=== PATIENT | female | born 1970 | race Caucasian/White ===

== ENCOUNTER → 2016-10-23 | Outpatient (CLI) | payer OTHER ==
[~2016-10-23] MED LIST: B121000 MCG/1 IM; CYMBALTA30 MG PO; ELAVIL10 MG PO; GLUCOPHAGE500 MG PO; GLUCOSAMINE CHO1 CAP; LEVOXYL0.3 MG PO; LEXAPRO20 MG PO; PERCOCET 325 MG1 TA2 PO; PLAQUENIL200 MG PO; SKELAXIN800 MG PO; SONATA10 MG PO; VICODIN 500 MG-1 TAB PO; VITAMIN D; VITAMIN D50000 I1 PO; VYVANSE50 MG PO; WELLBUTRIN XL300 MG PO; XANAX0.25 MG PO; XOPENEX HF0.045 MG/A IH; ZOVIRAX800 MG PO
== END | disposition home or self-care (01) ==
LOC: RAD 07:40
DX: M17.11 Unilateral primary osteoarthritis, right knee (principal); M25.461 Effusion, right knee

== ENCOUNTER → 2016-10-28 | Outpatient (CLI) | payer OTHER | END | disposition home or self-care (01) | LOC: MRI 10-23 07:28 | DX: S89.91XD Unspecified injury of right lower leg, subsequent encounter (principal); M17.11 Unilateral primary osteoarthritis, right knee; X50.1XXD Overexertion from prolonged static or awkward postures, subsequent encounter ==

== ENCOUNTER → 2016-10-29 | Outpatient (CLI) | payer OTHER | END | disposition home or self-care (01) | LOC: ORTHO 03:01 | DX: M17.12 Unilateral primary osteoarthritis, left knee (principal); M79.89 Other specified soft tissue disorders ==

== ENCOUNTER → 2016-11-03 | Outpatient (CLI) | payer OTHER ==
[~2016-11-03] MED LIST changes: +FLEXAMIN PO; -LEVOXYL0.3 MG PO; +LEVOXYL125 MCG PO; +METANX PO; +VOLTAREN100 GM T
[2016-11-03 11:06] LABS: BASO % 0.3 % (0.0-1.0); BILIRUBIN NEGATIVE (NEGATIVE); BLOOD TRACE-LYSED (NEGATIVE); CLARITY SL CLOUDY (CLEAR); COLOR YELLOW (YELLOW); EOS # 0.2 10*3/uL (0.0-0.4); EOS % 1.8 % (1.0-4.0); GLUCOSE NEGATIVE (NEGATIVE); HEMATOCRIT 42.4 % (37.0-47.0); HEMOGLOBIN 14.1 g/dl (12.0-16.0); KETONE NEGATIVE (NEGATIVE); LEUKO ESTERASE 1+ (NEGATIVE); LYMPH # 2.5 10*3/uL (1.3-4.4); MEAN CELL VOLUME 92.4 fl (81.0-99.0); MEAN CORPUSCULAR HGB 30.7 pg (27.0-31.0); MEAN CORPUSCULAR HGB CONC 33.3 g/dl (33.0-37.0); MONO # 0.6 10*3/uL (0.1-1.0); NEUT # 5.8 10*3/uL (2.3-7.9); NEUT % 63.5 % (47.0-73.0); NITRITE POSITIVE (NEGATIVE); PH 5.5 (5.0-9.0); PLATELET COUNT AUTOMATED 253 10*3/uL (130-400); PROTEIN NEGATIVE (NEGATIVE); RED BLOOD COUNT 4.59 10*6/uL (4.10-5.10); RED CELL DISTRI WIDTH 13.6 % (0-14.5); SPECIFIC GRAVITY >= 1.030 (1.005-1.030); UROBILINOGEN 0.2 E.U./dl (0.2-1.0); WHITE BLOOD COUNT 9.1 10*3/uL (4.8-10.8)
[2016-11-03 11:19] LABS: BACTERIA 3+; EPITHELIAL CELLS 21-30; URINE REFLEX COMMENT YES (NO); WBC 21-30 wbc/hpf (0-5)
[2016-11-03 11:43] LABS: ALBUMIN 3.7 gm/dl (3.1-4.5); ALKALINE PHOSPHATASE 65 U/L (45-117); BILIRUBIN, TOTAL 0.2 mg/dl (0.2-1.0); BUN 13 mg/dl (7-24); CARBON DIOXIDE 26 mmol/L (21-32); CHLORIDE 108 mmol/L (98-107); EST GLOM FILT AFRICAN AMERICAN > 60 ml/min; GLUCOSE 94 mg/dL (65-99); POTASSIUM 3.7 mmol/L (3.5-5.1); SGOT/AST 13 IU/L (3-35); SGPT/ALT 18 U/L (12-78); SODIUM 139 mmol/L (136-145); TOTAL PROTEIN 7.5 gm/dL (6.4-8.2)
== END | disposition home or self-care (01) ==
LOC: LAB 09:04
PROVIDERS: Orthopaedic Surgery
DX: Z01.818 Encounter for other preprocedural examination (principal); S83.241A Other tear of medial meniscus, current injury, right knee, initial encounter; M94.261 Chondromalacia, right knee; R82.99 Other abnormal findings in urine; X58.XXXA Exposure to other specified factors, initial encounter; Y93.89 Activity, other specified; Y92.89 Other specified places as the place of occurrence of the external cause; Y99.8 Other external cause status

== ENCOUNTER → 2016-11-09 | Outpatient (CLI) | payer OTHER ==
[~2016-11-09] MED LIST changes: +Percocet 325 MG1 TAB PO; +ZOFRAN4 MG PO
[2016-11-09 11:55] LABS: BILIRUBIN NEGATIVE (NEGATIVE); BLOOD NEGATIVE (NEGATIVE); CLARITY CLEAR (CLEAR); COLOR YELLOW (YELLOW); GLUCOSE NEGATIVE (NEGATIVE); KETONE NEGATIVE (NEGATIVE); LEUKO ESTERASE NEGATIVE (NEGATIVE); NITRITE NEGATIVE (NEGATIVE); SPECIFIC GRAVITY >= 1.030 (1.005-1.030); UROBILINOGEN 0.2 E.U./dl (0.2-1.0)
[2016-11-09 12:04] LABS: WBC 0-2 wbc/hpf (0-5)
== END | disposition home or self-care (01) ==
LOC: LAB 11:07
PROVIDERS: Orthopaedic Surgery
DX: N39.0 Urinary tract infection, site not specified (principal)

== ENCOUNTER → 2016-11-10 | Day surgery (SDC) | payer OTHER ==
[2016-11-03 09:49] VITALS: BP 159/93
[~2016-11-10] VITALS: Ht 162.5 cm; Wt 106.6 kg
[2016-11-10] VITALS (7 sets, daily range): BP systolic 144–184; BP diastolic 90–119
== END | disposition home or self-care (01) ==
LOC: SDC 11-03 08:45
DX: S83.281A Other tear of lateral meniscus, current injury, right knee, initial encounter (principal); S83.241A Other tear of medial meniscus, current injury, right knee, initial encounter; E03.9 Hypothyroidism, unspecified; E05.00 Thyrotoxicosis with diffuse goiter without thyrotoxic crisis or storm; J45.909 Unspecified asthma, uncomplicated; Z90.49 Acquired absence of other specified parts of digestive tract; Z98.51 Tubal ligation status; Z98.890 Other specified postprocedural states; Z80.8 Family history of malignant neoplasm of other organs or systems; Z80.3 Family history of malignant neoplasm of breast; F17.210 Nicotine dependence, cigarettes, uncomplicated; E66.9 Obesity, unspecified; Z68.41 Body mass index [BMI] 40.0-44.9, adult; M17.12 Unilateral primary osteoarthritis, left knee; X58.XXXA Exposure to other specified factors, initial encounter; Y92.89 Other specified places as the place of occurrence of the external cause; Y99.8 Other external cause status; Y93.89 Activity, other specified

== ENCOUNTER → 2016-11-26 | Outpatient (CLI) | payer OTHER | END | disposition home or self-care (01) | LOC: ORTHO 00:43 | DX: S80.02XA Contusion of left knee, initial encounter (principal); M54.6 Pain in thoracic spine; R23.3 Spontaneous ecchymoses; W19.XXXA Unspecified fall, initial encounter; X58.XXXA Exposure to other specified factors, initial encounter; Y93.89 Activity, other specified; Y92.89 Other specified places as the place of occurrence of the external cause; Y99.8 Other external cause status ==

== ENCOUNTER → 2017-03-01 | Outpatient (CLI) | payer OTHER | LOC: RAD 05:09 | DX: R05 Cough (principal) ==

== ENCOUNTER → 2017-03-19 | Outpatient (CLI) | payer OTHER | END | disposition home or self-care (01) | LOC: US 08:06 | DX: M79.661 Pain in right lower leg (principal); M79.89 Other specified soft tissue disorders; R25.2 Cramp and spasm ==

== ENCOUNTER → 2017-09-10 | Outpatient (CLI) | payer OTHER | END | disposition home or self-care (01) | LOC: MRI 09:44 | DX: M70.61 Trochanteric bursitis, right hip (principal); S83.242A Other tear of medial meniscus, current injury, left knee, initial encounter; M25.862 Other specified joint disorders, left knee; X58.XXXA Exposure to other specified factors, initial encounter; Y93.89 Activity, other specified; Y92.89 Other specified places as the place of occurrence of the external cause; Y99.8 Other external cause status ==

== ENCOUNTER → 2017-09-23 | Outpatient (CLI) | payer OTHER | END | disposition home or self-care (01) | LOC: ORTHO 01:36 | DX: M17.12 Unilateral primary osteoarthritis, left knee (principal) ==

== ENCOUNTER → 2018-01-12 | Outpatient (CLI) | payer OTHER ==
[2018-01-12 12:46] LABS: BASO % 0.4 % (0.0-1.0); EOS # 0.3 10*3/uL (0.0-0.4); EOS % 3.4 % (1.0-4.0); HEMATOCRIT 38.5 % (37.0-47.0); HEMOGLOBIN 12.7 g/dl (12.0-16.0); LYMPH % 25.1 % (27.0-41.0); MEAN CELL VOLUME 91.7 fl (81.0-99.0); MEAN CORPUSCULAR HGB 30.2 pg (27.0-31.0); MEAN PLATELET VOLUME 11.1 fl (9.6-12.3); MONO # 0.7 10*3/uL (0.1-1.0); NEUT # 4.9 10*3/uL (2.3-7.9); NEUT % 61.8 % (47.0-73.0); PLATELET COUNT AUTOMATED 225 10*3/uL (130-400); RED CELL DISTRI WIDTH 13.6 % (0-14.5); WHITE BLOOD COUNT 7.9 10*3/uL (4.8-10.8)
[2018-01-12 13:18] LABS: ALBUMIN 3.4 gm/dl (3.1-4.5); BUN 15 mg/dl (7-24); CHLORIDE 106 mmol/L (98-107); CHOLESTEROL 185 mg/dL (<200); CREATININE 0.74 mg/dL (0.55-1.02); IRON 54 ug/dL (50-170); POTASSIUM 3.7 mmol/L (3.5-5.1); SGOT/AST 13 IU/L (3-35); SGPT/ALT 19 U/L (12-78); SODIUM 139 mmol/L (136-145); THYROXINE (T4) TOTAL 12.6 ug/dl (4.8-13.9); TOTAL IRON BINDING CAPACITY 329 ug/dl (250-450); TRIGLYCERIDES 100 mg/dl (<150); VLDL CHOLESTEROL 20 mg/dL (6-40)
[2018-01-12 13:27] LABS: ALKALINE PHOSPHATASE 61 U/L (45-117); FREE T4 1.33 ng/dl (0.76-1.46); HDL CHOLESTEROL 52 mg/dl (40-60); LDL CHOLESTEROL 113 mg/dL (9-159); T3 UPTAKE 33 % (31-39); THYROID STIM HORMONE (HS) 0.647 uIU/ml (0.358-4.75); TOTAL PROTEIN 6.8 gm/dL (6.4-8.2)
[2018-01-12 14:08] LABS: FERRITIN 11.7 ng/mL (10.0-291.0); PTH INTACT 51.3 pg/mL (18.5-88.0); VITAMIN D, 25-HYDROXY 41.7 ng/mL (30-100)
== END | disposition home or self-care (01) ==
LOC: LAB 11:51
PROVIDERS: Internal Medicine
DX: Z13.1 Encounter for screening for diabetes mellitus (principal); Z13.21 Encounter for screening for nutritional disorder; Z13.220 Encounter for screening for lipoid disorders; E55.9 Vitamin D deficiency, unspecified; D51.0 Vitamin B12 deficiency anemia due to intrinsic factor deficiency; R53.81 Other malaise; R73.01 Impaired fasting glucose; E78.5 Hyperlipidemia, unspecified; E05.00 Thyrotoxicosis with diffuse goiter without thyrotoxic crisis or storm; E03.2 Hypothyroidism due to medicaments and other exogenous substances; E53.9 Vitamin B deficiency, unspecified

== ENCOUNTER → 2018-01-14 | Outpatient (CLI) | payer OTHER | END | disposition home or self-care (01) | LOC: RAD 11:56 | DX: R91.8 Other nonspecific abnormal finding of lung field (principal); R06.02 Shortness of breath; R05 Cough; R07.9 Chest pain, unspecified; I10 Essential (primary) hypertension; Z87.891 Personal history of nicotine dependence ==

== ENCOUNTER 2018-07-20 21:39 | Emergency (ER) | payer OTHER ==
--- NOTE | ~2018-07-20 | EKG ---
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
--- NOTE | ~2018-07-20 | EKG ---
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
[2018-07-20 22:09] LABS: BASO # 0.1 10*3/uL (0.0-0.1); BASO % 0.4 % (0.0-1.0); EOS # 0.1 10*3/uL (0.0-0.4); EOS % 0.8 % (1.0-4.0); HEMATOCRIT 42.4 % (37.0-47.0); HEMOGLOBIN 13.6 g/dl (12.0-16.0); LYMPH # 3.2 10*3/uL (1.3-4.4); LYMPH % 27.1 % (27.0-41.0); MEAN CELL VOLUME 91.8 fl (81.0-99.0); MEAN CORPUSCULAR HGB 29.4 pg (27.0-31.0); MEAN CORPUSCULAR HGB CONC 32.1 g/dl (33.0-37.0); MEAN PLATELET VOLUME 10.8 fl (9.6-12.3); MONO % 8.5 % (3.0-9.0); NEUT # 7.4 10*3/uL (2.3-7.9); NEUT % 62.9 % (47.0-73.0); PLATELET COUNT AUTOMATED 284 10*3/uL (130-400); RED BLOOD COUNT 4.62 10*6/uL (4.10-5.10); RED CELL DISTRI WIDTH 14.8 % (0-14.5); WHITE BLOOD COUNT 11.9 10*3/uL (4.8-10.8)
[2018-07-20 22:25] LABS: ALBUMIN 3.6 gm/dl (3.1-4.5); ALKALINE PHOSPHATASE 68 U/L (45-117); BUN 11 mg/dl (7-24); CHLORIDE 102 mmol/L (98-107); CREATININE 0.95 mg/dL (0.55-1.02); POTASSIUM 3.6 mmol/L (3.5-5.1); SGOT/AST 12 IU/L (3-35); SGPT/ALT 18 U/L (12-78); SODIUM 138 mmol/L (136-145); TOTAL PROTEIN 7.5 gm/dL (6.4-8.2)
[2018-07-20 22:29] LABS: TROPONIN I < 0.015 ng/ml (<0.045)
[2018-07-20 22:42] LABS: ACT PARTIAL THROMBO TIME 29.2 SECONDS (20.0-32.1); INTERNATIONAL NORM RATIO 0.8 (2.0-3.5)
[2018-07-20 23:00] VITALS: BP 118/65
== END 2018-07-21 01:30 | disposition home or self-care (01) ==
LOC: ED 21:39
PROVIDERS: Emergency Medicine Emergency Medical Services
DX: I16.0 Hypertensive urgency (principal); F41.1 Generalized anxiety disorder; R42 Dizziness and giddiness; R00.2 Palpitations; R06.02 Shortness of breath; J45.909 Unspecified asthma, uncomplicated; R51 Headache; H53.8 Other visual disturbances; F17.200 Nicotine dependence, unspecified, uncomplicated; Z79.899 Other long term (current) drug therapy; Z91.040 Latex allergy status; Z88.6 Allergy status to analgesic agent; Z88.8 Allergy status to other drugs, medicaments and biological substances

== ENCOUNTER → 2018-11-21 | Outpatient (CLI) | payer OTHER ==
[2018-11-21 12:35] LABS: BASO % 0.5 % (0.0-1.0); EOS # 0.3 10*3/uL (0.0-0.4); HEMATOCRIT 41.9 % (37.0-47.0); HEMOGLOBIN 13.5 g/dl (12.0-16.0); LYMPH # 2.1 10*3/uL (1.3-4.4); LYMPH % 23.5 % (27.0-41.0); MEAN CELL VOLUME 89.9 fl (81.0-99.0); MEAN CORPUSCULAR HGB CONC 32.2 g/dl (33.0-37.0); MONO # 0.7 10*3/uL (0.1-1.0); MONO % 7.9 % (3.0-9.0); NEUT # 5.7 10*3/uL (2.3-7.9); NEUT % 64.8 % (47.0-73.0); PLATELET COUNT AUTOMATED 245 10*3/uL (130-400); RED BLOOD COUNT 4.66 10*6/uL (4.10-5.10); RED CELL DISTRI WIDTH 13.6 % (0-14.5); WHITE BLOOD COUNT 8.9 10*3/uL (4.8-10.8)
[2018-11-21 13:07] LABS: ALBUMIN 3.3 gm/dl (3.1-4.5); ALKALINE PHOSPHATASE 74 U/L (45-117); BUN 16 mg/dl (7-24); CHLORIDE 106 mmol/L (98-107); CHOLESTEROL 227 mg/dL (<200); CREATININE 0.85 mg/dL (0.55-1.02); HDL CHOLESTEROL 53 mg/dl (40-60); IRON 43 ug/dL (50-170); LDL CHOLESTEROL 133 mg/dL (9-159); POTASSIUM 4.2 mmol/L (3.5-5.1); SGOT/AST 10 IU/L (3-35); SGPT/ALT 19 U/L (12-78); SODIUM 137 mmol/L (136-145); T3 UPTAKE 38 % (31-39); THYROXINE (T4) TOTAL 15.2 ug/dl (4.8-13.9); TOTAL PROTEIN 7.2 gm/dL (6.4-8.2); TRIGLYCERIDES 206 mg/dl (<150); VLDL CHOLESTEROL 41 mg/dL (6-40)
[2018-11-21 13:13] LABS: THYROID STIM HORMONE (HS) 0.085 uIU/ml (0.358-4.75)
[2018-11-21 13:38] LABS: FERRITIN 10.7 ng/mL (10.0-291.0); VITAMIN D, 25-HYDROXY 19.4 ng/mL (30-100)
== END | disposition home or self-care (01) ==
LOC: LAB 10:13 → US 12:30 → CARD 11-24 13:00
PROVIDERS: Internal Medicine
DX: N83.202 Unspecified ovarian cyst, left side (principal); R11.0 Nausea; M25.512 Pain in left shoulder; M25.511 Pain in right shoulder; M17.0 Bilateral primary osteoarthritis of knee; M25.551 Pain in right hip; M25.552 Pain in left hip; Z90.49 Acquired absence of other specified parts of digestive tract

== ENCOUNTER → 2018-11-24 | Outpatient (CLI) | payer OTHER | END | disposition home or self-care (01) | LOC: US 11-21 10:30 → CARD 11-21 10:30 | DX: R06.02 Shortness of breath (principal) ==

== ENCOUNTER → 2019-01-17 | Outpatient (CLI) | payer OTHER | END | disposition home or self-care (01) | LOC: US 15:54 | DX: N81.10 Cystocele, unspecified (principal) ==

== ENCOUNTER 2019-03-10 22:28 | Emergency (ER) | payer OTHER ==
[~2019-03-10] VITALS: Ht 160 cm; Wt 104.3 kg
[2019-03-10 22:31] VITALS: BP 147/93
[2019-03-10] MEDS ORDERED: LISINOPRIL20 MG PO (22:48)
[2019-03-10] MEDS ORDERED: CELEBREX400 M1 PO (22:49)
[2019-03-10] MEDS ORDERED: OMEPRAZOLE40 MG PO (22:50)
[2019-03-10] MEDS ORDERED: TRAMADOL HCL50 MG PO (22:50)
[2019-03-10] MEDS ORDERED: XOPENEX HFA15 GM INH (22:52)
[2019-03-11] MEDS ORDERED: ZANAFLEX2 M1 PO ×2 (03:08→03:23)
[2019-03-11] MEDS ORDERED: MEDROL DOSEPAK4 MG PO (03:08)
[2019-03-11] MEDS ORDERED: PREDNISONE10 M1 PO (03:23)
== END 2019-03-11 03:36 | disposition home or self-care (01) ==
LOC: ED 22:28
DX: M54.41 Lumbago with sciatica, right side (principal); I10 Essential (primary) hypertension; F41.1 Generalized anxiety disorder; R42 Dizziness and giddiness; G89.29 Other chronic pain; F17.200 Nicotine dependence, unspecified, uncomplicated; Z91.040 Latex allergy status; Z88.8 Allergy status to other drugs, medicaments and biological substances; Z79.899 Other long term (current) drug therapy

== ENCOUNTER → 2019-03-29 | Outpatient (CLI) | payer OTHER ==
[~2019-03-29] MED LIST changes: +CELEBREX400 M1 PO; +LISINOPRIL20 MG PO; +MEDROL DOSEPAK4 MG PO; +OMEPRAZOLE40 MG PO; +PREDNISONE10 M1 PO; +TRAMADOL HCL50 MG PO; +XOPENEX HFA15 GM INH; +ZANAFLEX2 M1 PO
== END | disposition home or self-care (01) ==
LOC: MRI 09:00
DX: M54.2 Cervicalgia (principal); M25.569 Pain in unspecified knee

== ENCOUNTER → 2019-04-19 | Outpatient (CLI) | payer OTHER | END | disposition home or self-care (01) | LOC: MRI 03-29 10:00 | DX: M17.11 Unilateral primary osteoarthritis, right knee (principal); M25.461 Effusion, right knee ==

== ENCOUNTER → 2019-08-02 | Outpatient (CLI) | payer MEDICAID ==
[2019-08-02 11:55] LABS: BASO # 0.1 10*3/uL (0.0-0.1); BASO % 0.6 % (0.0-1.0); EOS # 0.1 10*3/uL (0.0-0.4); EOS % 0.9 % (1.0-4.0); HEMATOCRIT 44.4 % (37.0-47.0); LYMPH # 2.8 10*3/uL (1.3-4.4); MEAN CELL VOLUME 91.5 fl (81.0-99.0); MEAN CORPUSCULAR HGB 29.5 pg (27.0-31.0); MEAN CORPUSCULAR HGB CONC 32.2 g/dl (33.0-37.0); MEAN PLATELET VOLUME 10.7 fl (9.6-12.3); MONO # 0.9 10*3/uL (0.1-1.0); MONO % 8.6 % (3.0-9.0); NEUT # 6.7 10*3/uL (2.3-7.9); NEUT % 63.5 % (47.0-73.0); PLATELET COUNT AUTOMATED 341 10*3/uL (130-400); RED BLOOD COUNT 4.85 10*6/uL (4.10-5.10); RED CELL DISTRI WIDTH 13.6 % (0-14.5); WHITE BLOOD COUNT 10.6 10*3/uL (4.8-10.8)
[2019-08-02 12:33] LABS: ALBUMIN 3.7 gm/dl (3.1-4.5); ALKALINE PHOSPHATASE 87 U/L (45-117); BUN 23 mg/dl (7-24); CHLORIDE 105 mmol/L (98-107); CHOLESTEROL 254 mg/dL (<200); CREATININE 1.07 mg/dL (0.55-1.02); HDL CHOLESTEROL 72 mg/dl (40-60); IRON 78 ug/dL (50-170); LDL CHOLESTEROL 154 mg/dL (9-159); POTASSIUM 3.9 mmol/L (3.5-5.1); SGOT/AST 15 IU/L (3-35); SGPT/ALT 35 U/L (12-78); SODIUM 136 mmol/L (136-145); TOTAL IRON BINDING CAPACITY 415 ug/dl (250-450); TOTAL PROTEIN 7.7 gm/dL (6.4-8.2); TRIGLYCERIDES 139 mg/dl (<150); VLDL CHOLESTEROL 28 mg/dL (6-40)
[2019-08-02 12:40] LABS: T3 UPTAKE 37 % (31-39); THYROID STIM HORMONE (HS) 0.558 uIU/ml (0.358-4.75)
[2019-08-02 12:41] LABS: FERRITIN 15.7 ng/mL (10.0-291.0); PTH INTACT 47.2 pg/mL (18.5-88.0)
[2019-08-03 08:07] LABS: COMPLEMENT C4 28 mg/dL (14-44); RHEUMATOID ARTHRITIS FACTOR <10.0 IU/mL (0.0-13.9)
[2019-08-03 09:09] LABS: FOLLICLE STIMULATING HORMONE 39.7 mIU/mL (.); LUTEINIZING HORMONE 26.2 mIU/mL (.); PROLACTIN 37.1 ng/mL (4.8-23.3); TOTAL T3 (TT3) 70 ng/dL (71-180)
[2019-08-03 12:08] LABS: ANTI-DSDNA ANTIBODIES 1 IU/mL (0-9)
[2019-08-07 08:05] LABS: FREE T4 BY DIALYSIS 2.7 ng/dL (.)
== END | disposition home or self-care (01) ==
LOC: LAB 10:42
PROVIDERS: Internal Medicine Endocrinology, Diabetes & Metabolism
DX: E03.2 Hypothyroidism due to medicaments and other exogenous substances (principal); R73.01 Impaired fasting glucose; E55.9 Vitamin D deficiency, unspecified; D53.8 Other specified nutritional anemias; D50.9 Iron deficiency anemia, unspecified; E23.0 Hypopituitarism; R94.7 Abnormal results of other endocrine function studies

== ENCOUNTER → 2019-10-16 | Outpatient (CLI) | payer OTHER | END | disposition home or self-care (01) | LOC: LAB 14:15 | DX: N39.0 Urinary tract infection, site not specified (principal) ==

== ENCOUNTER → 2019-12-07 | Outpatient (CLI) | payer OTHER ==
[2019-12-07 09:39] LABS: BASO % 0.4 % (0.0-1.0); EOS # 0.3 10*3/uL (0.0-0.4); EOS % 2.5 % (1.0-4.0); HEMATOCRIT 35.4 % (37.0-47.0); LYMPH # 3.1 10*3/uL (1.3-4.4); LYMPH % 30.3 % (27.0-41.0); MEAN CELL VOLUME 89.6 fl (81.0-99.0); MEAN CORPUSCULAR HGB 27.6 pg (27.0-31.0); MEAN CORPUSCULAR HGB CONC 30.8 g/dl (33.0-37.0); MEAN PLATELET VOLUME 10.3 fl (9.6-12.3); MONO # 0.9 10*3/uL (0.1-1.0); MONO % 8.4 % (3.0-9.0); NEUT # 5.9 10*3/uL (2.3-7.9); NEUT % 58.1 % (47.0-73.0); PLATELET COUNT AUTOMATED 342 10*3/uL (130-400); RED BLOOD COUNT 3.95 10*6/uL (4.10-5.10); RED CELL DISTRI WIDTH 13.9 % (0-14.5); WHITE BLOOD COUNT 10.1 10*3/uL (4.8-10.8)
[2019-12-07 10:02] LABS: ALBUMIN 3.1 gm/dl (3.1-4.5); ALKALINE PHOSPHATASE 86 U/L (45-117); BUN 22 mg/dl (7-24); CHLORIDE 106 mmol/L (98-107); CREATININE 0.87 mg/dL (0.55-1.02); POTASSIUM 3.7 mmol/L (3.5-5.1); SGOT/AST 13 IU/L (3-35); SGPT/ALT 31 U/L (12-78); SODIUM 138 mmol/L (136-145); TOTAL PROTEIN 6.9 gm/dL (6.4-8.2)
[2019-12-07 10:14] LABS: THYROXINE (T4) TOTAL 13.6 ug/dl (4.8-13.9)
[2019-12-07 10:24] LABS: PTH INTACT 36.2 pg/mL (18.5-88.0)
[2019-12-07 11:09] LABS: CLARITY TURBID (CLEAR); COLOR Yellow (YELLOW)
[2019-12-07 11:10] LABS: BACTERIA 4+; BILIRUBIN NEGATIVE; BLOOD 2+ (NEGATIVE); EPITHELIAL CELLS 21-30; GLUCOSE NEGATIVE; KETONE TRACE; LEUKO ESTERASE 2+ (NEGATIVE); NITRITE POSITIVE (NEGATIVE); RBC 21-30 rbc/hpf (0-2); SPECIFIC GRAVITY > 1.030 (1.001-1.030); WBC TNTC wbc/hpf (0-5)
[2019-12-08 08:12] LABS: COMPLEMENT C4 28 mg/dL (14-44); PROLACTIN 69.8 ng/mL (4.8-23.3)
[2019-12-08 09:07] LABS: FOLLICLE STIMULATING HORMONE 7.8 mIU/mL (.); LUTEINIZING HORMONE 7.7 mIU/mL (.)
[2019-12-14 09:09] LABS: T4 ANTIBODY Negative (Negative)
== END | disposition home or self-care (01) ==
LOC: LAB 08:13
PROVIDERS: Internal Medicine Endocrinology, Diabetes & Metabolism; ATTEND Physical Therapist Orthopedic
DX: M25.741 Osteophyte, right hand (principal); M25.742 Osteophyte, left hand; M19.90 Unspecified osteoarthritis, unspecified site; R76.8 Other specified abnormal immunological findings in serum; E03.2 Hypothyroidism due to medicaments and other exogenous substances; E78.5 Hyperlipidemia, unspecified; E55.9 Vitamin D deficiency, unspecified; E23.0 Hypopituitarism; D50.9 Iron deficiency anemia, unspecified; R73.01 Impaired fasting glucose

== ENCOUNTER → 2019-12-29 | Outpatient (CLI) | payer OTHER | END | disposition home or self-care (01) | LOC: CT 14:27 | PROVIDERS: ATTEND Specialist | DX: M51.17 Intervertebral disc disorders with radiculopathy, lumbosacral region (principal); Z94.89 Other transplanted organ and tissue status ==

== ENCOUNTER 2020-01-30 15:24 | Emergency (ER) | payer OTHER ==
[~2020-01-30] VITALS: Wt 111.1 kg
[2020-01-30 15:34] VITALS: BP 142/80
[2020-01-30 16:24] LABS: BASO % 0.2 % (0.0-1.0); EOS # 0.1 10*3/uL (0.0-0.4); EOS % 0.5 % (1.0-4.0); HEMATOCRIT 37.1 % (37.0-47.0); LYMPH # 1.4 10*3/uL (1.3-4.4); LYMPH % 13.7 % (27.0-41.0); MEAN CELL VOLUME 84.7 fl (81.0-99.0); MEAN CORPUSCULAR HGB 25.3 pg (27.0-31.0); MEAN CORPUSCULAR HGB CONC 29.9 g/dl (33.0-37.0); MEAN PLATELET VOLUME 9.5 fl (9.6-12.3); MONO # 0.5 10*3/uL (0.1-1.0); MONO % 5.1 % (3.0-9.0); NEUT # 8.1 10*3/uL (2.3-7.9); NEUT % 80.3 % (47.0-73.0); PLATELET COUNT AUTOMATED 358 10*3/uL (130-400); RED BLOOD COUNT 4.38 10*6/uL (4.10-5.10); RED CELL DISTRI WIDTH 14.4 % (0-14.5); WHITE BLOOD COUNT 10.1 10*3/uL (4.8-10.8)
[2020-01-30 16:41] LABS: ALBUMIN 3.4 gm/dl (3.1-4.5); ALKALINE PHOSPHATASE 88 U/L (45-117); BUN 20 mg/dl (7-24); CHLORIDE 102 mmol/L (98-107); CREATININE 1.02 mg/dL (0.55-1.02); POTASSIUM 3.8 mmol/L (3.5-5.1); SGOT/AST 18 IU/L (3-35); SGPT/ALT 30 U/L (12-78); SODIUM 136 mmol/L (136-145); TOTAL PROTEIN 7.6 gm/dL (6.4-8.2)
[2020-01-30 16:55] LABS: TROPONIN I < 0.015 ng/ml (<0.045)
== END 2020-01-30 18:38 | disposition home or self-care (01) ==
LOC: ED 15:24
PROVIDERS: Emergency Medicine
DX: R06.00 Dyspnea, unspecified (principal); M54.9 Dorsalgia, unspecified; F32.9 Major depressive disorder, single episode, unspecified; F41.9 Anxiety disorder, unspecified; J45.909 Unspecified asthma, uncomplicated; Z91.040 Latex allergy status; Z88.8 Allergy status to other drugs, medicaments and biological substances; Z79.899 Other long term (current) drug therapy; Z79.2 Long term (current) use of antibiotics

== ENCOUNTER → 2020-02-23 | Outpatient (CLI) | payer OTHER | END | disposition home or self-care (01) | LOC: CT 13:00 | PROVIDERS: ATTEND Internal Medicine | DX: M54.5 Low back pain (principal) ==

== ENCOUNTER → 2020-02-27 | Outpatient (CLI) | payer OTHER | END | disposition home or self-care (01) | LOC: CARD 00:18 | PROVIDERS: ATTEND Internal Medicine | DX: R06.02 Shortness of breath (principal); R00.2 Palpitations ==

== ENCOUNTER → 2020-03-28 | Outpatient (CLI) | payer OTHER ==
[~2020-03-28] MED LIST changes: +ARTHROTEC 75 M1 EACH PO; +GABAPENTIN800 MG PO; +HYDROCORTISONE10 MG PO; +LEVOXYL112 MCG PO; -LEVOXYL125 MCG PO; +METFORMIN HCL500 M2 PO; +ROBAXIN-750750 MG PO; +VISTARIL25 M2 PO
[2020-03-28 13:12] LABS: BASO % 0.4 % (0.0-1.0); EOS # 0.1 10*3/uL (0.0-0.4); EOS % 0.9 % (1.0-4.0); HEMATOCRIT 34.4 % (37.0-47.0); LYMPH # 1.9 10*3/uL (1.3-4.4); MEAN CELL VOLUME 81.3 fl (81.0-99.0); MEAN CORPUSCULAR HGB 24.3 pg (27.0-31.0); MEAN CORPUSCULAR HGB CONC 29.9 g/dl (33.0-37.0); MEAN PLATELET VOLUME 10.4 fl (9.6-12.3); MONO # 0.6 10*3/uL (0.1-1.0); MONO % 8.3 % (3.0-9.0); NEUT # 4.7 10*3/uL (2.3-7.9); NEUT % 64.3 % (47.0-73.0); PLATELET COUNT AUTOMATED 310 10*3/uL (130-400); RED BLOOD COUNT 4.23 10*6/uL (4.10-5.10); RED CELL DISTRI WIDTH 15.2 % (0-14.5); WHITE BLOOD COUNT 7.4 10*3/uL (4.8-10.8)
[2020-03-28 13:32] LABS: ALBUMIN 3.2 gm/dl (3.1-4.5); ALKALINE PHOSPHATASE 73 U/L (45-117); BUN 11 mg/dl (7-24); CHLORIDE 107 mmol/L (98-107); CHOLESTEROL 218 mg/dL (<200); CREATININE 0.81 mg/dL (0.55-1.02); HDL CHOLESTEROL 66 mg/dl (40-60); IRON 34 ug/dL (50-170); LDL CHOLESTEROL 113 mg/dL (9-159); POTASSIUM 3.8 mmol/L (3.5-5.1); SGOT/AST 13 IU/L (3-35); SGPT/ALT 19 U/L (12-78); SODIUM 138 mmol/L (136-145); T3 UPTAKE 40 % (31-39); THYROXINE (T4) TOTAL 14.9 ug/dl (4.8-13.9); TOTAL IRON BINDING CAPACITY 411 ug/dl (250-450); TRIGLYCERIDES 197 mg/dl (<150); VLDL CHOLESTEROL 39 mg/dL (6-40)
[2020-03-28 13:38] LABS: THYROID STIM HORMONE (HS) 0.012 uIU/ml (0.358-4.75)
[2020-03-28 14:13] LABS: FERRITIN 5.7 ng/mL (10.0-291.0); PTH INTACT 58.3 pg/mL (18.5-88.0); VITAMIN D, 25-HYDROXY 51.5 ng/mL (30-100)
[2020-04-03 19:06] LABS: METANEPHRINE, PLASMA <10.0 pg/mL (0.0-88.0)
[2020-04-04 04:08] LABS: VMA, URINE 24 HR 3.7 mg/24 hr (0.0-7.5)
[2020-04-04 07:21] LABS: NORMETANEPHRINE, PLASMA 63.6 pg/mL (0.0-125.8)
[2020-04-05 17:06] LABS: NORMETANEPHRINE URINE 128 ug/L (Undefined); URINE METANEPHRINE 26 ug/L (Undefined); URINE METANEPHRINE, 24 HR 81 ug/24 hr (36-209); URINE NORMETANEPHRINE 24HR 397 ug/24 hr (131-612)
[2020-04-05 20:07] LABS: FREE T4 BY DIALYSIS 2.5 ng/dL (.)
[2020-04-06 04:10] LABS: DOPAMINE, URINE 121 ug/L (Undefined); EPINEPHRINE, URINE 24 HR 3 ug/24 hr (0-20)
== END | disposition home or self-care (01) ==
LOC: LAB 12:13
PROVIDERS: ATTEND Internal Medicine Endocrinology, Diabetes & Metabolism
DX: E55.9 Vitamin D deficiency, unspecified (principal); E27.9 Disorder of adrenal gland, unspecified; E53.8 Deficiency of other specified B group vitamins; R73.01 Impaired fasting glucose; D50.9 Iron deficiency anemia, unspecified; E03.2 Hypothyroidism due to medicaments and other exogenous substances

== ENCOUNTER → 2020-04-01 | Outpatient (CLI) | payer OTHER | END | disposition home or self-care (01) | LOC: RAD 03-18 14:00 | PROVIDERS: ATTEND Internal Medicine Endocrinology, Diabetes & Metabolism | DX: M81.0 Age-related osteoporosis without current pathological fracture (principal) ==

== ENCOUNTER → 2020-04-16 | Outpatient (CLI) | payer OTHER | END | disposition home or self-care (01) | LOC: LAB 08:55 | PROVIDERS: ATTEND Internal Medicine Endocrinology, Diabetes & Metabolism | DX: E03.2 Hypothyroidism due to medicaments and other exogenous substances (principal); E55.9 Vitamin D deficiency, unspecified; E23.0 Hypopituitarism; R73.01 Impaired fasting glucose; E78.5 Hyperlipidemia, unspecified; E53.8 Deficiency of other specified B group vitamins ==

== ENCOUNTER → 2020-04-30 | Outpatient (CLI) | payer OTHER | END | disposition home or self-care (01) | LOC: LAB 11:01 | PROVIDERS: ATTEND Internal Medicine | DX: N39.0 Urinary tract infection, site not specified (principal) ==

== ENCOUNTER 2020-05-30 15:57 | Emergency (ER) | payer OTHER ==
[~2020-05-30] VITALS: Ht 157.4 cm; Wt 109.8 kg
[2020-05-30 20:38] VITALS: BP 147/69
== END 2020-05-30 21:16 | disposition home or self-care (01) ==
LOC: ED 15:57
DX: M54.12 Radiculopathy, cervical region (principal); M62.830 Muscle spasm of back; Z91.040 Latex allergy status; Z88.8 Allergy status to other drugs, medicaments and biological substances; Z79.899 Other long term (current) drug therapy; Z79.84 Long term (current) use of oral hypoglycemic drugs; Z79.2 Long term (current) use of antibiotics; Z98.890 Other specified postprocedural states

== ENCOUNTER → 2020-06-25 | Outpatient (CLI) | payer OTHER ==
[2020-06-25 12:43] LABS: THYROID STIM HORMONE (HS) 0.043 uIU/ml (0.358-4.75); THYROXINE (T4) TOTAL 15.4 ug/dl (4.8-13.9)
== END | disposition home or self-care (01) ==
LOC: LAB 11:35
PROVIDERS: ATTEND Internal Medicine Endocrinology, Diabetes & Metabolism
DX: E03.2 Hypothyroidism due to medicaments and other exogenous substances (principal); E27.9 Disorder of adrenal gland, unspecified

== ENCOUNTER → 2020-08-15 | Outpatient (CLI) | payer OTHER | END | disposition home or self-care (01) | LOC: CARD 00:46 | PROVIDERS: ATTEND Internal Medicine | DX: N39.0 Urinary tract infection, site not specified (principal); R06.02 Shortness of breath ==

== ENCOUNTER → 2020-09-09 | Outpatient (CLI) | payer OTHER | END | disposition home or self-care (01) | LOC: MAMMO 11:00 | PROVIDERS: ATTEND Internal Medicine | DX: Z12.31 Encounter for screening mammogram for malignant neoplasm of breast (principal); N64.89 Other specified disorders of breast ==

== ENCOUNTER → 2020-09-26 | Outpatient (CLI) | payer OTHER ==
[~2020-09-26] MED LIST changes: +CLINDAMYCIN HC300 MG PO
[2020-09-26 09:09] LABS: BASO % 0.5 % (0.0-1.0); EOS # 0.3 10*3/uL (0.0-0.4); EOS % 4.1 % (1.0-4.0); HEMATOCRIT 39.6 % (37.0-47.0); LYMPH # 2.1 10*3/uL (1.3-4.4); MEAN CORPUSCULAR HGB CONC 32.6 g/dl (33.0-37.0); MEAN PLATELET VOLUME 10.2 fl (9.6-12.3); MONO # 0.7 10*3/uL (0.1-1.0); MONO % 10.8 % (3.0-9.0); NEUT # 3.3 10*3/uL (2.3-7.9); NEUT % 51.4 % (47.0-73.0); PLATELET COUNT AUTOMATED 238 10*3/uL (130-400); RED BLOOD COUNT 4.45 10*6/uL (4.10-5.10); RED CELL DISTRI WIDTH 13.8 % (0-14.5); WHITE BLOOD COUNT 6.3 10*3/uL (4.8-10.8)
[2020-09-26 09:27] LABS: ALBUMIN 3.2 gm/dl (3.1-4.5); ALKALINE PHOSPHATASE 83 U/L (45-117); BUN 18 mg/dl (7-24); CHLORIDE 109 mmol/L (98-107); CHOLESTEROL 215 mg/dL (<200); CREATININE 0.86 mg/dL (0.55-1.02); LDL CHOLESTEROL 130 mg/dL (9-159); POTASSIUM 3.8 mmol/L (3.5-5.1); SGOT/AST 15 IU/L (3-35); SGPT/ALT 20 U/L (12-78); SODIUM 138 mmol/L (136-145); T3 UPTAKE 38 % (31-39); THYROXINE (T4) TOTAL 12.9 ug/dl (4.8-13.9); TOTAL PROTEIN 6.4 gm/dL (6.4-8.2); TRIGLYCERIDES 157 mg/dl (<150)
[2020-09-26 09:31] LABS: THYROID STIM HORMONE (HS) 0.052 uIU/ml (0.358-4.75)
[2020-09-26 10:14] LABS: PTH INTACT 59.1 pg/mL (18.5-88.0)
[2020-09-26 10:15] LABS: VITAMIN D, 25-HYDROXY 58.6 ng/mL (30-100)
[2020-09-27 08:08] LABS: DHEA SULFATE 50.1 ug/dL (41.2-243.7)
== END | disposition home or self-care (01) ==
LOC: LAB 08:43
PROVIDERS: ATTEND Internal Medicine Endocrinology, Diabetes & Metabolism
DX: E55.9 Vitamin D deficiency, unspecified (principal); E78.6 Lipoprotein deficiency; E23.0 Hypopituitarism; R73.01 Impaired fasting glucose; E03.2 Hypothyroidism due to medicaments and other exogenous substances

== ENCOUNTER → 2020-09-27 | Outpatient (CLI) | payer OTHER ==
[2020-10-02 17:07] LABS: CORTISOL, FREE URINE 12 ug/L (Undefined); CORTISOL, FREE, UG/24HR, URINE 17 ug/24 hr (6-42); CORTISONE, URINE 60 ug/L (Undefined)
== END | disposition home or self-care (01) ==
LOC: LAB 19:12
PROVIDERS: ATTEND Internal Medicine Endocrinology, Diabetes & Metabolism
DX: E78.5 Hyperlipidemia, unspecified (principal); E23.0 Hypopituitarism; R73.01 Impaired fasting glucose; E55.9 Vitamin D deficiency, unspecified

== ENCOUNTER → 2020-11-14 | Outpatient (CLI) | payer OTHER ==
[2020-11-14 13:13] LABS: BASO % 0.3 % (0.0-1.0); EOS # 0.2 10*3/uL (0.0-0.4); EOS % 2.3 % (1.0-4.0); HEMATOCRIT 41.1 % (37.0-47.0); LYMPH # 1.4 10*3/uL (1.3-4.4); LYMPH % 19.8 % (27.0-41.0); MEAN CELL VOLUME 90.5 fl (81.0-99.0); MEAN CORPUSCULAR HGB 28.9 pg (27.0-31.0); MEAN CORPUSCULAR HGB CONC 31.9 g/dl (33.0-37.0); MONO # 0.5 10*3/uL (0.1-1.0); MONO % 7.7 % (3.0-9.0); NEUT # 4.8 10*3/uL (2.3-7.9); NEUT % 69.6 % (47.0-73.0); PLATELET COUNT AUTOMATED 270 10*3/uL (130-400); RED BLOOD COUNT 4.54 10*6/uL (4.10-5.10); RED CELL DISTRI WIDTH 14.2 % (0-14.5); WHITE BLOOD COUNT 6.9 10*3/uL (4.8-10.8)
[2020-11-15 04:06] LABS: COMPLEMENT C4 26 mg/dL (12-38)
== END | disposition home or self-care (01) ==
LOC: LAB 12:57
PROVIDERS: ATTEND Internal Medicine Rheumatology
DX: K12.1 Other forms of stomatitis (principal)

== ENCOUNTER 2020-11-15 16:10 | Emergency (ER) | payer OTHER ==
[~2020-11-15] VITALS: Ht 157.4 cm; Wt 106.6 kg
[~2020-11-15 16:10] MED LIST changes: -CLINDAMYCIN HC300 MG PO
[2020-11-15 16:24] VITALS: BP 152/90
[2020-11-15 17:02] LABS: BASO % 0.4 % (0.0-1.0); EOS # 0.1 10*3/uL (0.0-0.4); EOS % 1.5 % (1.0-4.0); HEMATOCRIT 39.4 % (37.0-47.0); LYMPH # 2.6 10*3/uL (1.3-4.4); LYMPH % 32.9 % (27.0-41.0); MEAN CELL VOLUME 91.4 fl (81.0-99.0); MEAN CORPUSCULAR HGB CONC 31.7 g/dl (33.0-37.0); MONO # 0.8 10*3/uL (0.1-1.0); MONO % 9.7 % (3.0-9.0); NEUT # 4.3 10*3/uL (2.3-7.9); NEUT % 55.1 % (47.0-73.0); PLATELET COUNT AUTOMATED 284 10*3/uL (130-400); RED BLOOD COUNT 4.31 10*6/uL (4.10-5.10); RED CELL DISTRI WIDTH 14.1 % (0-14.5); WHITE BLOOD COUNT 7.8 10*3/uL (4.8-10.8)
[2020-11-15 17:24] LABS: ALBUMIN 3.3 gm/dl (3.1-4.5); CREATININE 1.26 mg/dL (0.55-1.02); POTASSIUM 3.8 mmol/L (3.5-5.1)
[2020-11-15] MEDS ORDERED: CLINDAMYCIN HC300 MG PO (20:50)
== END 2020-11-15 21:05 | disposition home or self-care (01) ==
LOC: ED 16:10
PROVIDERS: Physician Assistant
DX: K08.89 Other specified disorders of teeth and supporting structures (principal); Z91.040 Latex allergy status; Z88.8 Allergy status to other drugs, medicaments and biological substances; Z79.899 Other long term (current) drug therapy; Z90.49 Acquired absence of other specified parts of digestive tract; Z98.51 Tubal ligation status

== ENCOUNTER 2021-01-16 22:37 | Emergency (ER) | payer OTHER ==
[~2021-01-16] VITALS: Ht 157.4 cm; Wt 104.3 kg
[~2021-01-16 22:37] MED LIST changes: +CLINDAMYCIN HC300 MG PO
[2021-01-16 22:42] VITALS: BP 131/82
[2021-01-16 23:13] LABS: BASO % 0.4 % (0.0-1.0); EOS # 0.2 10*3/uL (0.0-0.4); EOS % 2.4 % (1.0-4.0); HEMATOCRIT 40.6 % (37.0-47.0); LYMPH # 2.5 10*3/uL (1.3-4.4); LYMPH % 31.1 % (27.0-41.0); MEAN CORPUSCULAR HGB 29.3 pg (27.0-31.0); MEAN CORPUSCULAR HGB CONC 32.5 g/dl (33.0-37.0); MONO # 0.7 10*3/uL (0.1-1.0); MONO % 8.9 % (3.0-9.0); NEUT # 4.5 10*3/uL (2.3-7.9); NEUT % 56.9 % (47.0-73.0); PLATELET COUNT AUTOMATED 311 10*3/uL (130-400); RED BLOOD COUNT 4.51 10*6/uL (4.10-5.10); RED CELL DISTRI WIDTH 13.5 % (0-14.5); WHITE BLOOD COUNT 7.9 10*3/uL (4.8-10.8)
[2021-01-16 23:28] LABS: ALBUMIN 3.4 gm/dl (3.1-4.5); ALKALINE PHOSPHATASE 91 U/L (45-117); BUN 11 mg/dl (7-24); CHLORIDE 105 mmol/L (98-107); CREATININE 0.95 mg/dL (0.55-1.02); POTASSIUM 3.8 mmol/L (3.5-5.1); SGOT/AST 18 IU/L (3-35); SGPT/ALT 27 U/L (12-78); SODIUM 137 mmol/L (136-145); TOTAL PROTEIN 7.2 gm/dL (6.4-8.2)
[2021-01-17] MEDS ORDERED: VALTREX500 MG PO (00:30)
[2021-01-17] MEDS ORDERED: ERYTHROMYCIN OPH1 GM OPH ×2 (00:30→11:24)
== END 2021-01-17 01:07 | disposition home or self-care (01) ==
LOC: ED 22:37
PROVIDERS: Emergency Medicine
DX: H57.11 Ocular pain, right eye (principal); R51.9 Headache, unspecified; Z91.040 Latex allergy status; Z88.8 Allergy status to other drugs, medicaments and biological substances; Z79.899 Other long term (current) drug therapy

== ENCOUNTER → 2021-01-22 | Outpatient (CLI) | payer OTHER ==
[~2021-01-22] MED LIST changes: +ERYTHROMYCIN OPH1 GM OPH; +VALTREX500 MG PO
== END | disposition home or self-care (01) ==
LOC: RAD 13:21
PROVIDERS: ATTEND Internal Medicine
DX: M19.041 Primary osteoarthritis, right hand (principal); M19.042 Primary osteoarthritis, left hand

== ENCOUNTER → 2021-02-12 | Outpatient (CLI) | payer OTHER | END | disposition home or self-care (01) | LOC: RAD 16:34 | PROVIDERS: ATTEND Internal Medicine | DX: M19.042 Primary osteoarthritis, left hand (principal); M25.742 Osteophyte, left hand; M77.8 Other enthesopathies, not elsewhere classified ==

== ENCOUNTER → 2021-02-21 | Outpatient (CLI) | payer OTHER | END | disposition home or self-care (01) | LOC: CT 02-20 09:00 | PROVIDERS: ATTEND Internal Medicine | DX: M47.816 Spondylosis without myelopathy or radiculopathy, lumbar region (principal) ==

== ENCOUNTER → 2021-04-10 | Outpatient (CLI) | payer OTHER ==
[2021-04-10 09:03] LABS: ALKALINE PHOSPHATASE 90 U/L (45-117); BUN 14 mg/dl (7-24); CHLORIDE 106 mmol/L (98-107); CHOLESTEROL 262 mg/dL (<200); CREATININE 1.12 mg/dL (0.55-1.02); IRON 39 ug/dL (50-170); LDL CHOLESTEROL 153 mg/dL (9-159); POTASSIUM 3.9 mmol/L (3.5-5.1); SGOT/AST 16 IU/L (3-35); SGPT/ALT 28 U/L (12-78); SODIUM 141 mmol/L (136-145); T3 UPTAKE 34 % (31-39); THYROXINE (T4) TOTAL 11.8 ug/dl (4.8-13.9); TOTAL IRON BINDING CAPACITY 365 ug/dl (250-450); TOTAL PROTEIN 6.7 gm/dL (6.4-8.2); TRIGLYCERIDES 213 mg/dl (<150)
[2021-04-10 09:09] LABS: THYROID STIM HORMONE (HS) 0.982 uIU/ml (0.358-4.75)
[2021-04-10 09:12] LABS: BASO % 0.5 % (0.0-1.0); EOS # 0.3 10*3/uL (0.0-0.4); EOS % 4.1 % (1.0-4.0); HEMATOCRIT 36.7 % (37.0-47.0); LYMPH # 2.5 10*3/uL (1.3-4.4); LYMPH % 31.7 % (27.0-41.0); MEAN CELL VOLUME 92.2 fl (81.0-99.0); MEAN CORPUSCULAR HGB 29.6 pg (27.0-31.0); MEAN CORPUSCULAR HGB CONC 32.2 g/dl (33.0-37.0); MEAN PLATELET VOLUME 10.2 fl (9.6-12.3); MONO # 0.7 10*3/uL (0.1-1.0); MONO % 8.5 % (3.0-9.0); NEUT # 4.3 10*3/uL (2.3-7.9); NEUT % 54.9 % (47.0-73.0); PLATELET COUNT AUTOMATED 291 10*3/uL (130-400); RED BLOOD COUNT 3.98 10*6/uL (4.10-5.10); WHITE BLOOD COUNT 7.8 10*3/uL (4.8-10.8)
[2021-04-10 09:47] LABS: VITAMIN D, 25-HYDROXY 54.6 ng/mL (30-100)
== END | disposition home or self-care (01) ==
LOC: LAB 08:27
PROVIDERS: ATTEND Internal Medicine Endocrinology, Diabetes & Metabolism
DX: E53.8 Deficiency of other specified B group vitamins (principal); E23.0 Hypopituitarism; D50.9 Iron deficiency anemia, unspecified; R73.01 Impaired fasting glucose; E78.5 Hyperlipidemia, unspecified; E55.9 Vitamin D deficiency, unspecified; E03.2 Hypothyroidism due to medicaments and other exogenous substances

== ENCOUNTER → 2021-07-14 | Outpatient (CLI) | payer OTHER ==
[~2021-07-14] MED LIST changes: +CYMBALTA60 MG PO; +HYDROCORTISONE5 MG PO; +HYDROXYZINE PAM25 M1 PO; +LEVOXYL175 MCG PO; +LINZESS145 MC1 PO; +METHOCARBAMOL750 M1 PO; +VITAMIN D32400 UNIT/ PO
== END | disposition home or self-care (01) ==
LOC: MRI 13:00
PROVIDERS: ATTEND Internal Medicine Endocrinology, Diabetes & Metabolism
DX: E23.0 Hypopituitarism (principal)

== ENCOUNTER → 2021-08-04 | Outpatient (CLI) | payer OTHER | END | disposition home or self-care (01) | LOC: LAB 16:11 | PROVIDERS: ATTEND Internal Medicine | DX: N39.0 Urinary tract infection, site not specified (principal) ==

== ENCOUNTER 2021-09-08 22:15 | Emergency (ER) | payer MEDICARE, MEDICAID ==
[2021-09-08 22:23] VITALS: BP 182/71
== END 2021-09-08 23:09 | disposition home or self-care (01) ==
LOC: ED 22:15
DX: G62.9 Polyneuropathy, unspecified (principal); Z91.040 Latex allergy status; Z88.8 Allergy status to other drugs, medicaments and biological substances; Z79.899 Other long term (current) drug therapy; Z90.89 Acquired absence of other organs; Z90.49 Acquired absence of other specified parts of digestive tract

== ENCOUNTER → 2021-11-07 | Outpatient (CLI) | payer OTHER, MEDICAID ==
[2021-11-07 10:48] LABS: BASO % 0.5 % (0.0-1.0); EOS # 0.3 10*3/uL (0.0-0.4); EOS % 4.2 % (1.0-4.0); HEMATOCRIT 39.3 % (37.0-47.0); LYMPH # 2.1 10*3/uL (1.3-4.4); LYMPH % 25.9 % (27.0-41.0); MEAN CELL VOLUME 89.5 fl (81.0-99.0); MEAN CORPUSCULAR HGB 28.7 pg (27.0-31.0); MEAN CORPUSCULAR HGB CONC 32.1 g/dl (33.0-37.0); MEAN PLATELET VOLUME 10.2 fl (9.6-12.3); MONO # 0.8 10*3/uL (0.1-1.0); NEUT # 4.7 10*3/uL (2.3-7.9); PLATELET COUNT AUTOMATED 317 10*3/uL (130-400); RED BLOOD COUNT 4.39 10*6/uL (4.10-5.10); WHITE BLOOD COUNT 7.9 10*3/uL (4.8-10.8)
[2021-11-07 11:03] LABS: FREE T4 1.3 ng/dl (0.76-1.46)
[2021-11-07 11:03] LABS: ALKALINE PHOSPHATASE 90 U/L (45-117); BUN 17 mg/dl (7-24); CHLORIDE 107 mmol/L (98-107); CHOLESTEROL 250 mg/dL (<200); CREATININE 0.88 mg/dL (0.55-1.02); IRON 46 ug/dL (50-170); LDL CHOLESTEROL 148 mg/dL (9-159); POTASSIUM 3.9 mmol/L (3.5-5.1); SGOT/AST 16 IU/L (3-35); SGPT/ALT 26 U/L (12-78); SODIUM 138 mmol/L (136-145); T3 UPTAKE 37 % (31-39); THYROXINE (T4) TOTAL 10.2 ug/dl (4.8-13.9); TOTAL PROTEIN 7.1 gm/dL (6.4-8.2); TRIGLYCERIDES 144 mg/dl (<150)
[2021-11-07 11:20] LABS: FERRITIN 10.6 ng/mL (10.0-291.0); VITAMIN D, 25-HYDROXY 52.9 ng/mL (30-100)
== END ==
LOC: LAB 09:56
PROVIDERS: Internal Medicine; ATTEND Internal Medicine Endocrinology, Diabetes & Metabolism
DX: D51.9 Vitamin B12 deficiency anemia, unspecified (principal); N39.0 Urinary tract infection, site not specified; R53.81 Other malaise; R79.89 Other specified abnormal findings of blood chemistry; E55.9 Vitamin D deficiency, unspecified; E03.9 Hypothyroidism, unspecified; Z13.0 Encounter for screening for diseases of the blood and blood-forming organs and certain disorders involving the immune mechanism; Z13.1 Encounter for screening for diabetes mellitus; Z13.21 Encounter for screening for nutritional disorder; Z13.220 Encounter for screening for lipoid disorders; Z13.228 Encounter for screening for other metabolic disorders; Z13.6 Encounter for screening for cardiovascular disorders; Z13.89 Encounter for screening for other disorder

== ENCOUNTER → 2022-01-01 | Outpatient (CLI) | payer OTHER, MEDICAID | END | disposition home or self-care (01) | LOC: US 11:30 | PROVIDERS: ATTEND Internal Medicine | DX: I83.811 Varicose veins of right lower extremity with pain (principal); I87.1 Compression of vein ==

== ENCOUNTER → 2022-01-07 | Outpatient (CLI) | payer OTHER, MEDICAID | END | disposition short-term general hospital (02) | LOC: ORTHO 00:57 | PROVIDERS: ATTEND Orthopaedic Surgery | DX: M17.11 Unilateral primary osteoarthritis, right knee (principal) ==

== ENCOUNTER → 2022-05-11 | Outpatient (CLI) | payer OTHER, MEDICAID ==
[2022-05-11 11:55] LABS: BASO % 0.6 % (0.0-1.0); EOS # 0.2 10*3/uL (0.0-0.4); EOS % 2.5 % (1.0-4.0); HEMATOCRIT 40.3 % (37.0-47.0); LYMPH % 31.1 % (27.0-41.0); MEAN CELL VOLUME 89.4 fl (81.0-99.0); MEAN CORPUSCULAR HGB 27.7 pg (27.0-31.0); MEAN PLATELET VOLUME 10.5 fl (9.6-12.3); MONO # 0.6 10*3/uL (0.1-1.0); NEUT # 3.7 10*3/uL (2.3-7.9); NEUT % 56.6 % (47.0-73.0); PLATELET COUNT AUTOMATED 263 10*3/uL (130-400); RED BLOOD COUNT 4.51 10*6/uL (4.10-5.10); RED CELL DISTRI WIDTH 14.6 % (0-14.5); WHITE BLOOD COUNT 6.5 10*3/uL (4.8-10.8)
[2022-05-11 12:17] LABS: ALKALINE PHOSPHATASE 78 U/L (46-116); BUN 14 mg/dl (9-23); CHLORIDE 103 mmol/L (98-107); CHOLESTEROL 238 mg/dL (<200); LDL CHOLESTEROL 144 mg/dL (9-159); POTASSIUM 4.1 mmol/L (3.4-5.1); SGPT/ALT 17 U/L (10-49); THYROID STIM HORMONE (HS) 0.437 uIU/ml (0.550-4.780); TOTAL PROTEIN 7.2 gm/dL (6.0-8.0); TRIGLYCERIDES 168 mg/dl (<150)
[2022-05-11 12:33] LABS: VITAMIN D, 25-HYDROXY 61.4 ng/mL (30-100)
== END | disposition home or self-care (01) ==
LOC: LAB 11:28
PROVIDERS: ATTEND Internal Medicine Endocrinology, Diabetes & Metabolism
DX: E88.81 Metabolic syndrome and other insulin resistance (principal); E78.5 Hyperlipidemia, unspecified; E23.0 Hypopituitarism; E55.9 Vitamin D deficiency, unspecified; E03.2 Hypothyroidism due to medicaments and other exogenous substances; D50.9 Iron deficiency anemia, unspecified

== ENCOUNTER 2022-07-13 15:17 | Emergency (ER) | payer OTHER, MEDICAID ==
[~2022-07-13] VITALS: Ht 154.9 cm; Wt 108.9 kg
[~2022-07-13 15:17] MED LIST changes: +AMITRIPTYLINE50 MG PO; +ESTRAC1 T; +LYVISPAH10 M1 PO; +MOUNJARO5 MG/0.51 SQ; +SPRAVATO84 MG NAS; +VYVANSE70 MG PO
[2022-07-13 15:26] VITALS: BP 143/76
== END 2022-07-13 18:29 | disposition home or self-care (01) ==
LOC: ED 15:17
DX: T14.8XXA Other injury of unspecified body region, initial encounter (principal); M25.522 Pain in left elbow; M79.641 Pain in right hand; M25.552 Pain in left hip; Z91.040 Latex allergy status; Z88.8 Allergy status to other drugs, medicaments and biological substances; Z79.899 Other long term (current) drug therapy; Z90.49 Acquired absence of other specified parts of digestive tract; Z90.89 Acquired absence of other organs; Z98.51 Tubal ligation status; W18.39XA Other fall on same level, initial encounter; Y93.89 Activity, other specified; Y92.89 Other specified places as the place of occurrence of the external cause; Y99.8 Other external cause status

== ENCOUNTER → 2022-11-11 | Outpatient (CLI) | payer OTHER, MEDICAID | END | disposition home or self-care (01) | LOC: CARD 00:58 | PROVIDERS: ATTEND Internal Medicine | DX: I10 Essential (primary) hypertension (principal) ==

== ENCOUNTER → 2023-01-12 | Outpatient (CLI) | payer OTHER, MEDICAID ==
[2023-01-12 16:35] LABS: BASO % 0.4 % (0.0-1.0); EOS # 0.2 10*3/uL (0.0-0.4); HEMATOCRIT 41.8 % (37.0-47.0); LYMPH # 2.4 10*3/uL (1.3-4.4); LYMPH % 22.6 % (27.0-41.0); MEAN CELL VOLUME 93.1 fl (81.0-99.0); MEAN CORPUSCULAR HGB 29.2 pg (27.0-31.0); MEAN CORPUSCULAR HGB CONC 31.3 g/dl (33.0-37.0); MEAN PLATELET VOLUME 10.4 fl (9.6-12.3); MONO # 0.8 10*3/uL (0.1-1.0); MONO % 7.6 % (3.0-9.0); NEUT # 7.1 10*3/uL (2.3-7.9); PLATELET COUNT AUTOMATED 343 10*3/uL (130-400); RED BLOOD COUNT 4.49 10*6/uL (4.10-5.10); RED CELL DISTRI WIDTH 13.3 % (0-14.5); WHITE BLOOD COUNT 10.6 10*3/uL (4.8-10.8)
[2023-01-12 17:07] LABS: ALKALINE PHOSPHATASE 95 U/L (46-116); BUN 12 mg/dl (9-23); CHLORIDE 105 mmol/L (98-107); CHOLESTEROL 208 mg/dL (<200); LDL CHOLESTEROL 118 mg/dL (9-159); POTASSIUM 4.3 mmol/L (3.4-5.1); SGPT/ALT 13 U/L (5-49); T3 UPTAKE 29.1 % (22.4-36.7); THYROXINE (T4) TOTAL 12.8 ug/dl (4.5-10.9); TOTAL PROTEIN 7.1 gm/dL (6.0-8.0); TRIGLYCERIDES 141 mg/dl (<150)
[2023-01-12 17:16] LABS: VITAMIN D, 25-HYDROXY 101.4 ng/mL (30-100)
[2023-01-15 01:06] LABS: CORTISOL, FREE URINE 23 ug/L (Undefined); CORTISOL, FREE, UG/24HR, URINE 14 ug/24 hr (6-42)
== END | disposition home or self-care (01) ==
LOC: LAB 02:28
PROVIDERS: ATTEND Internal Medicine Endocrinology, Diabetes & Metabolism
DX: E23.0 Hypopituitarism (principal); R73.01 Impaired fasting glucose; E03.2 Hypothyroidism due to medicaments and other exogenous substances; E55.9 Vitamin D deficiency, unspecified; D50.9 Iron deficiency anemia, unspecified; D51.9 Vitamin B12 deficiency anemia, unspecified

== ENCOUNTER → 2023-04-20 | Outpatient (CLI) | payer OTHER ==
[2023-04-20 11:27] LABS: BASO % 0.5 % (0.0-1.0); EOS # 0.1 10*3/uL (0.0-0.4); EOS % 1.9 % (1.0-4.0); HEMATOCRIT 41.5 % (37.0-47.0); LYMPH # 1.6 10*3/uL (1.3-4.4); LYMPH % 25.6 % (27.0-41.0); MEAN CELL VOLUME 91.2 fl (81.0-99.0); MEAN CORPUSCULAR HGB 28.8 pg (27.0-31.0); MEAN CORPUSCULAR HGB CONC 31.6 g/dl (33.0-37.0); MEAN PLATELET VOLUME 9.9 fl (9.6-12.3); MONO # 0.5 10*3/uL (0.1-1.0); MONO % 7.7 % (3.0-9.0); PLATELET COUNT AUTOMATED 276 10*3/uL (130-400); RED BLOOD COUNT 4.55 10*6/uL (4.10-5.10); RED CELL DISTRI WIDTH 13.4 % (0-14.5); WHITE BLOOD COUNT 6.2 10*3/uL (4.8-10.8)
[2023-04-20 12:01] LABS: ALKALINE PHOSPHATASE 83 U/L (46-116); BUN 19 mg/dl (9-23); CHLORIDE 106 mmol/L (98-107); CHOLESTEROL 230 mg/dL (<200); FREE T4 1.77 ng/dl (0.89-1.76); LDL CHOLESTEROL 136 mg/dL (9-159); SGPT/ALT 11 U/L (5-49); TOTAL PROTEIN 6.7 gm/dL (6.0-8.0)
== END | disposition home or self-care (01) ==
LOC: LAB 10:55
PROVIDERS: ATTEND Internal Medicine Endocrinology, Diabetes & Metabolism
DX: E23.0 Hypopituitarism (principal); E78.5 Hyperlipidemia, unspecified; E27.9 Disorder of adrenal gland, unspecified; Z79.899 Other long term (current) drug therapy

== ENCOUNTER → 2023-05-31 | Outpatient (CLI) | payer OTHER | END | disposition home or self-care (01) | LOC: MAMMO 00:39 | PROVIDERS: ATTEND Internal Medicine | DX: Z12.31 Encounter for screening mammogram for malignant neoplasm of breast (principal) ==

== ENCOUNTER → 2023-06-16 | Outpatient (CLI) | payer MEDICARE, OTHER ==
[2023-06-16 09:39] LABS: BASO % 0.4 % (0.0-1.0); EOS # 0.2 10*3/uL (0.0-0.4); HEMATOCRIT 43.1 % (37.0-47.0); LYMPH # 2.3 10*3/uL (1.3-4.4); LYMPH % 33.5 % (27.0-41.0); MEAN CELL VOLUME 91.1 fl (81.0-99.0); MEAN CORPUSCULAR HGB 28.5 pg (27.0-31.0); MEAN CORPUSCULAR HGB CONC 31.3 g/dl (33.0-37.0); MONO # 0.8 10*3/uL (0.1-1.0); MONO % 11.2 % (3.0-9.0); NEUT # 3.5 10*3/uL (2.3-7.9); NEUT % 51.6 % (47.0-73.0); PLATELET COUNT AUTOMATED 269 10*3/uL (130-400); RED BLOOD COUNT 4.73 10*6/uL (4.10-5.10); RED CELL DISTRI WIDTH 13.3 % (0-14.5); WHITE BLOOD COUNT 6.7 10*3/uL (4.8-10.8)
[2023-06-16 11:00] LABS: ALKALINE PHOSPHATASE 95 U/L (46-116); BUN 13 mg/dl (9-23); CHLORIDE 102 mmol/L (98-107); POTASSIUM 4.1 mmol/L (3.4-5.1); SGPT/ALT 15 U/L (5-49); TOTAL PROTEIN 6.9 gm/dL (6.0-8.0)
== END | disposition home or self-care (01) ==
LOC: LAB 08:55
PROVIDERS: ATTEND Internal Medicine Endocrinology, Diabetes & Metabolism
DX: E23.0 Hypopituitarism (principal); R73.01 Impaired fasting glucose; Z79.899 Other long term (current) drug therapy

== ENCOUNTER → 2023-09-08 | Outpatient (CLI) | payer MEDICARE, OTHER | END | disposition home or self-care (01) | LOC: US 00:21 | PROVIDERS: ATTEND Internal Medicine | DX: R20.8 Other disturbances of skin sensation (principal) ==

== ENCOUNTER → 2023-10-21 | Outpatient (CLI) | payer MEDICARE, OTHER ==
[2023-10-21 11:04] LABS: BASO % 0.6 % (0.0-1.0); EOS # 0.2 10*3/uL (0.0-0.4); EOS % 3.6 % (1.0-4.0); LYMPH # 1.6 10*3/uL (1.3-4.4); LYMPH % 29.2 % (27.0-41.0); MEAN CELL VOLUME 91.1 fl (81.0-99.0); MEAN CORPUSCULAR HGB 29.1 pg (27.0-31.0); MEAN PLATELET VOLUME 9.9 fl (9.6-12.3); MONO # 0.5 10*3/uL (0.1-1.0); MONO % 8.7 % (3.0-9.0); NEUT # 3.1 10*3/uL (2.3-7.9); NEUT % 57.5 % (47.0-73.0); PLATELET COUNT AUTOMATED 267 10*3/uL (130-400); WHITE BLOOD COUNT 5.3 10*3/uL (4.8-10.8)
[2023-10-21 11:41] LABS: VITAMIN D, 25-HYDROXY 53.5 ng/mL (30-100)
[2023-10-21 11:42] LABS: ALKALINE PHOSPHATASE 84 U/L (46-116); BUN 15 mg/dl (9-23); CHLORIDE 105 mmol/L (98-107); POTASSIUM 4.4 mmol/L (3.4-5.1); SGPT/ALT 18 U/L (5-49); TOTAL PROTEIN 6.8 gm/dL (6.0-8.0)
== END | disposition home or self-care (01) ==
LOC: LAB 10:32
PROVIDERS: ATTEND Internal Medicine Endocrinology, Diabetes & Metabolism
DX: E23.0 Hypopituitarism (principal); R73.01 Impaired fasting glucose; E03.2 Hypothyroidism due to medicaments and other exogenous substances; Z79.899 Other long term (current) drug therapy